=== PATIENT | female | born 1950 | race Caucasian/White ===

== ENCOUNTER → 2016-10-14 | Outpatient (CLI) | payer BC ==
[~2016-10-14] MED LIST: AMLO5TAB66 PO; CARV12.525 PO; CITA-49 PO; ESTR0.6261 PO; INDA1.2516 PO; LISI-114 PO; MEDR5TAB PO; SIMV20TA80 PO
== END ==
LOC: WC.BC 10:15
DX: Z12.31 Encounter for screening mammogram for malignant neoplasm of breast (principal)
CPT/HCPCS: 77063; G0202